=== PATIENT | female | born 1960 | race Hispanic/Latino ===

== ENCOUNTER → 2024-07-20 | Outpatient (CLI) | payer OTHER ==
[2024-07-20 12:20] LABS: CREATININE 0.7 mg/dL (0.5-1.0); MAGNESIUM 2.2 mg/dL (1.80-2.40); POTASSIUM 4.6 mmol/L (3.5-5.1)
== END | disposition home or self-care (01) ==
LOC: LAB 09:01
PROVIDERS: ATTEND Internal Medicine Cardiovascular Disease
DX: R07.89 Other chest pain (principal)
CPT/HCPCS: 36415; 80048; 83735

== ENCOUNTER → 2024-07-24 | Outpatient (CLI) | payer OTHER ==
--- NOTE | 2024-07-24 14:51 | HMCIMG ---
CT CORONARY CALCIFICATION SCORING: Anatomic images were reviewed. The calcium score is being generated and reported separately. This report is for the visualized anatomy only. Visualized portions of the lungs are clear. Hilar and mediastinal structures appear normal. Osseous structures are unremarkable. Impression: 1. Negative noncardiac anatomic findings. 2. The calcium score is 8.7 consistent with a minimal degree of calcified plaque. This is 50th percentile for this age patient. CT was performed with one or more following dose reduction techniques: automated exposure control, adjustment of the mA and kv according to patient's size, or use of a iterative reconstruction technique.
--- NOTE | 2024-07-28 08:46 | HMCSR ---
APPROVED REPORT EXAM: Two-dimensional and M-mode echocardiogram with Doppler and color Doppler. INDICATION ICD: R00.2 Palpitations 2D Dimensions RVDd3.6 cmLVEF(%)60.1 (>50%)LVED Vol(simp.)67.4 mL IVSd0.7 (0.7-1.1cm)FS(%)32 %LVES Vol(simp.)26.4 mL LVDd4.1 (3.8-5.6cm)LA (2D)4.3 (1.6-4.0cm)LVEF(%, simp.)61 % PWd0.8 (0.7-1.1cm)Ao Root(2D)2.6 (2.0-3.7cm)LA ESV INDEX (4CH)27.10 mL/m2 IVSs1.1 cmLVOT diam1.9 (1.8-2.4cm)LA ESV INDEX (2CH)38.30 mL/m2 LVDs2.8 (2.5-4.0cm)LA ESV INDEX (BP)33.40 mL/m2 PWs1.4 cm M-Mode Dimensions EPSS1.0 cm LA (MM)4.1 (1.6-4.0cm) Ao Root(MM)2.6 (2.0-3.7cm) Aortic Valve AoV VTI0.4 mAo Mean GR8.0 mmHgLVOT VTI0.25 m RISA (VMAX)1.8 cm2Al P1/2T741 msAVA (VTI) 1.8 cm2 Mitral Valve MV E Vmax99.0 cm/sDECEL Pfwg010 ms MV A Vmax84.4 cm/sP 1/2 T67 ms E/A ratio1.2MVA (PHT)3.3 cm2 MR Max PG78 mmHg TDI E/E' Xjrzpi68.2E/E' Xvihurm74.4 Medial E' Peak V6.50 cm/sLateral E' Peak V9.50 cm/s Pulmonary Valve PV VTI0.25 mPV Mean GR2 mmHg Tricuspid Valve TR Vmax3.0 m/sRAP (EST) 8 wtWtWDAH85.9 mmHg TR Peak GR34.9 mmHg Left Ventricle The left ventricle is normal size. There is normal LV segmental wall motion. There is normal left joseph tricular wall thickness. LVEF is 60-65%. The left ventricular diastolic function is normal. Right Ventricle The right ventricle is normal size. The right ventricular systolic function is normal. Atria The left atrium size is normal. The right atrium is borderline dilated. Aortic Valve The aortic valve is normal in structure. Mild aortic regurgitation is present. There is no aortic gio vular stenosis. Mitral Valve The mitral valve is normal in structure. There is trace of mitral valve regurgitation noted. There is no mitral valve stenosis. Tricuspid Valve The tricuspid valve is normal in structure. There is mild tricuspid valve regurgitation noted. Pulmonic Valve The pulmonary valve is normal in structure. There is no pulmonic valvular regurgitation. Great Vessels The aortic root is normal in size. IVC is small and pulsatile. Pericardium There is no pericardial effusion. Other Information Quality : Adequate Conclusion LVEF is 60-65%. Mild aortic regurgitation is present. There is trace of mitral valve regurgitation noted. There is mild tricuspid valve regurgitation noted.
== END | disposition home or self-care (01) ==
LOC: RAH 13:08
PROVIDERS: ATTEND Internal Medicine Cardiovascular Disease
DX: Z13.6 Encounter for screening for cardiovascular disorders (principal); I08.2 Rheumatic disorders of both aortic and tricuspid valves
CPT/HCPCS: 75571; 93306

== ENCOUNTER → 2024-07-24 | Outpatient (CLI) | payer OTHER | END | disposition home or self-care (01) | LOC: RAH 13:00 | PROVIDERS: ATTEND Internal Medicine Cardiovascular Disease | DX: I08.2 Rheumatic disorders of both aortic and tricuspid valves (principal); R00.2 Palpitations | CPT/HCPCS: 93306 ==